=== PATIENT | female | born 1990 | race Caucasian/White ===

== ENCOUNTER 2018-11-21 07:31 | Inpatient (IN) | payer OTHER ==
--- NOTE | 2018-11-21 15:19 | PDOC.LDHP ---
Labor and Delivery H&P Chief complaint: scheduled induction HPI: Pt is a 28yo G1 scheduled for IOL @ 40.3 weeks. Current gestational age (weeks): 40 Due date: 11/18/18 Dating criteria: last menstrual period, first trimester ultrasound Grav: 1 Para: 0 Current complications: none Abnormal US findings: No Current medications: pre-nieves vitamins Previous surgical history: none Allergies/Adverse Reactions: Allergies Allergy/AdvReac Type Severity Reaction Status Date / Time No Known Allergies Allergy Verified 11/21/18 22:38 Social history: none - Vaginal Exam cm dilated: 3 Effacement: 75% Station: -1 - OB Labs Blood type: O RH: positive Antibody Screen: negative HIV: negative RPR: negative HEPSAg: negative 1 hour GCT: negative GBS: negative Rubella: immune - Assessment L&D Assessment: elective induction at term - Plan Plan: admit to L&D, cervical ripening, labor augmentation if indicated, informed consent obtained, anesthesia consult for pain management -: A/P: Admit for IOL @ 40+ weeks for prolonged . Cervical ripening overnight completed, plan for AROM and pitocin if indicated today.
[2018-11-21] MEDS ORDERED: Ondansetron PF 4 MG/2 ML Vial IVP PRN (20:53)
[2018-11-21] MEDS ORDERED: HYDROcodone/Acetaminophen 5/325 mg Tablet PO PRN ×2 (20:53)
[2018-11-21] MEDS ORDERED: NS / Oxytocin 40 units/1000ml 1,000 ML IV PRN (20:53)
[2018-11-21] MEDS ORDERED: NS w/ Oxytocin 10 units 500 ML IV SCH ×2 (20:53)
[2018-11-21] MEDS ORDERED: Ibuprofen 800 MG TAB PO PRN (20:53)
[2018-11-21] MEDS ORDERED: Lidocaine 1% (PF) 30 ML VIAL SC PRN (20:53)
[2018-11-21] MEDS ORDERED: Promethazine HCl 25 MG/ML VIAL IM PRN (20:53)
[2018-11-21] MEDS ORDERED: Misoprostol 100 MCG TAB VAG SCH (21:00)
[2018-11-21] MEDS: Lactated Ringer's 1,000 ML IV SCH (21:31)
[2018-11-21 22:01] LABS: Hemoglobin 13.9 g/dL (12.0-16.0); Mean Corpuscular HGB CONC 34.4 g/dL (32.0-36.0); Mean Corpuscular Hemoglobin 30.8 pg (27.0-31.0); Mean Corpuscular Volume 89.6 fL (78.0-98.0); Mean Platelet Volume 8.2 fL (7.4-10.4); Platelet Count 238 thou/uL (130-400); RBC Distribution Width 11.1 % (11.5-14.5); Red Blood Cell (RBC) Count 4.51 mill/uL (4.20-5.40); White Blood Cell (WBC) Count 9.9 thou/uL (4.8-10.8)
[2018-11-21 22:49] VITALS: BMI 31.6
[2018-11-22] MEDS: Butorphanol Tartrate 1 MG/ML VIAL SLOW IVP PRN ×2 (00:02→02:43)
[2018-11-22] MEDS ORDERED: Fentanyl 4 mcg/Bup 0.1% Cadd 100 ML ONE (07:59)
[2018-11-22] MEDS ORDERED: Lidocaine 1.5% w/Epi 1:200K 30 ML VIAL (Epid Use) ONE (08:21)
[2018-11-22] MEDS ORDERED: Ondansetron PF 4 MG/2 ML Vial IVP PRN ×2 (08:34→14:47)
[2018-11-22] MEDS ORDERED: Naloxone HCl 0.4 mg/ml Vial IVP PRN ×2 (08:34)
[2018-11-22] MEDS ORDERED: Promethazine HCl 25 MG/ML VIAL IM PRN (08:34)
[2018-11-22] MEDS ORDERED: ePHEDrine/0.9% NaCl/PF SYRINGE 50 mg/10 ml SLOW IVP PRN (08:34)
[2018-11-22] MEDS ORDERED: Lactated Ringer's 500 ML IV PRN (08:34)
[2018-11-22] MEDS ORDERED: Acetaminophen 325 MG TAB PO PRN (08:34)
[2018-11-22] MEDS ORDERED: Eucerin (Mineral Oil/Petrolatum,White) 30 gm Jar TOP PRN (08:34)
[2018-11-22] MEDS ORDERED: diphenhydrAMINE 50 MG/ML VIAL IVP PRN (08:34)
[2018-11-22] MEDS ORDERED: Communication Order-Pharmacy FS SCH (08:45)
[2018-11-22] MEDS ORDERED: Fentanyl 4 mcg/Bupivacaine 0.1% Cassette 100 ML EPIDURAL SCH (08:45)
[2018-11-22] MEDS: Lactated Ringer's 1,000 ML IV SCH ×2 (09:03→16:33)
--- NOTE | 2018-11-22 10:46 | PDOC.LDPN ---
Labor & Delivery Progress Note - Objective Vital signs reviewed and normal: yes General: resting Dilation: 4 Effacement: 75% Station: -1 FHT: category 1 [place] contractions every: 3 AROM: bloody fluid - Assessment (1) 40 weeks gestation of Code(s): Z3A.40 - 40 WEEKS GESTATION OF Current Visit: Yes Status : Acute Plan: continue plan of care
[2018-11-22] MEDS ORDERED: Lidocaine 1% (PF) 30 ML VIAL ONE (12:46)
--- NOTE | 2018-11-22 13:31 | PDOC.OPDEL ---
OB Operative/Delivery Note Delivery Dr/Surgeon: [place] Pre-Delivery Diagnosis: elective induction Procedure/Post Delivery Dx: spontaneous vaginal delivery Weeks gestation: 40 Anesthesia: epidural - Findings A Sex: female Weight: 6 lb - 1 min: 8 - 5 min: 9 - Additional Findings/Plan Placenta delivered: spontaneous Repaired Obstetrical Laceration: 2nd degree Estimated blood loss: 300 Compilations/Other Findings: nursery to warmer for grunting, baby skin to skin after nursery assessment Post delivery plan: routine recovery
[2018-11-22] MEDS ORDERED: diphenhydrAMINE 25 MG CAP PO PRN (14:47)
[2018-11-22] MEDS ORDERED: Bisacodyl 10 MG SUPP PR PRN (14:47)
[2018-11-22] MEDS ORDERED: Lanolin Ointment 7 GM TUBE TOP PRN (14:47)
[2018-11-22] MEDS ORDERED: Benzocaine/Menthol 20-0.5% 60 ML CAN TOP PRN (14:47)
[2018-11-22] MEDS ORDERED: Milk Of Magnesia 30 ML UDCUP PO PRN (14:47)
[2018-11-22] MEDS ORDERED: NS / Oxytocin 40 units/1000ml 1,000 ML IV SCH (14:47)
[2018-11-22] MEDS ORDERED: Preparation H Ointment 28 GM TUBE PR PRN (14:47)
[2018-11-22] MEDS ORDERED: HYDROcodone/Acetaminophen 5/325 mg Tablet PO PRN ×2 (14:47)
[2018-11-22 15:17] LABS: Hep B Surf Ag Non-Reactive S/CO (NonReactive)
[2018-11-22] MEDS: Ferrous Sulfate 325 MG TAB PO SCH (16:32)
[2018-11-22] MEDS: Docusate Calcium (SURFAK) 240 MG CAP PO SCH (21:53)
[2018-11-22] MEDS: Ibuprofen 800 MG TAB PO SCH (21:53)
[2018-11-23] MEDS: Ibuprofen 800 MG TAB PO SCH ×3 (05:54→21:32)
[2018-11-23] MEDS: Ferrous Sulfate 325 MG TAB PO SCH ×2 (07:43→15:58)
--- NOTE | 2018-11-23 08:03 | PDOC.PP ---
Post Progress Note Post Day #: 1 Subjective: min bleeding, min discomfort, issues w latching PO intake tolerated: yes Flatus: yes Ambulation: yes Vital Signs (12 hours) Temp Pulse Resp BP BP 11/23/18 05:40 97.6 F 85 18 105/58 L 11/22/18 23:30 97.7 F 88 18 96/59 L Weight Weight 190 lb - Physical Examination General: NAD Respiratory: non-labored breathing Abdominal: no distention Fundus firm & at: below umb Skin: no rash Neurological: no gross focal deficits Psychiatric: A&Ox3, normal affect Result Diagrams: 11/21/18 21:52 Additional Labs: Post Labs Blood Type O POSITIVE 11/21/18 21:52 Hep Bs Antigen Non-Reactive S/CO (NonReactive) 11/21/18 21:52 (1) 40 weeks gestation of Code(s): Z3A.40 - 40 WEEKS GESTATION OF Status: Acute - Assessment/Plan PPD1 doing well, LC pending, likely DC tomorrow.
[2018-11-23] MEDS ORDERED: Adacel (T-DAP) 0.5 ML SYRINGE IM ONE (09:00)
[2018-11-23] MEDS: Docusate Calcium (SURFAK) 240 MG CAP PO SCH ×2 (10:23→21:32)
[2018-11-23] MEDS: Prenatal Vitamin 1 TAB PO SCH (10:23)
[2018-11-24] MEDS: Ibuprofen 800 MG TAB PO SCH ×2 (05:53→07:28)
[2018-11-24] MEDS: Prenatal Vitamin 1 TAB PO SCH (07:28)
[2018-11-24] MEDS: Docusate Calcium (SURFAK) 240 MG CAP PO SCH (07:28)
[2018-11-24] MEDS: Ferrous Sulfate 325 MG TAB PO SCH (08:09)
[2018-11-24 08:18] VITALS: BP 106/66; TEMP 97.8
--- NOTE | 2018-11-24 09:27 | PDOC.PP ---
Post Progress Note Post Day #: 2 Subjective: doing well, minimal bleeding, no concerns PO intake tolerated: yes Flatus: yes Ambulation: yes Vital Signs (12 hours) Temp Pulse Resp BP Pulse Ox 11/24/18 08:18 97.8 F 91 20 106/66 98 Weight Weight 190 lb - Physical Examination General: NAD Respiratory: non-labored breathing Abdominal: no distention Neurological: no gross focal deficits Psychiatric: A&Ox3, normal affect Result Diagrams: 11/21/18 21:52 Additional Labs: Post Labs Blood Type O POSITIVE 11/21/18 21:52 Hep Bs Antigen Non-Reactive S/CO (NonReactive) 11/21/18 21:52 (1) 40 weeks gestation of Code(s): Z3A.40 - 40 WEEKS GESTATION OF Status: Acute - Assessment/Plan PPD 2 doing well, better latch yesterday and this AM. Plan for DC today.
== END 2018-11-24 11:55 | disposition home or self-care (01) | DRG 807 ==
LOC: L&D 20:38 → 3SW 11-22 15:55
PROVIDERS: ADMIT Obstetrics & Gynecology; ATTEND Obstetrics & Gynecology
PROC: 10E0XZZ Delivery of Products of Conception, External Approach (ICD-10-PCS; principal; 2018-11-22)
PROC: 0KQM0ZZ Repair Perineum Muscle, Open Approach (ICD-10-PCS; 2018-11-22)
PROC: 10907ZC Drainage of Amniotic Fluid, Therapeutic from Products of Conception, Via Natural or Artificial Opening (ICD-10-PCS; 2018-11-22)
PROC: 3E0P7VZ Introduction of Hormone into Female Reproductive, Via Natural or Artificial Opening (ICD-10-PCS; 2018-11-22)
PROC: 3E033VJ Introduction of Other Hormone into Peripheral Vein, Percutaneous Approach (ICD-10-PCS; 2018-11-22)
DX: O48.0 Post-term pregnancy (principal); Z37.0 Single live birth; O70.1 Second degree perineal laceration during delivery; Z3A.40 40 weeks gestation of pregnancy
CPT/HCPCS: 36415; 51702; 85027; 86850; 86900; 86901; 87340; J0595; J2001